=== PATIENT | male | born 1940 | race Caucasian/White ===

== ENCOUNTER → 2018-05-26 07:16 | Outpatient (CLI) | payer OTHER, SELFPAY ==
[2018-05-26 07:50] LABS: Add Manual Diff / Slide Review NO; Basophils Percent Auto 0.9 % (0-2); Hematocrit 46.6 % (41-53); Hemoglobin 15.4 g/dL (13.5-17.5); Lymphocytes Percent Auto 41.2 % (25-40); Mean Corpuscular HGB Conc 33.1 % (30-36); Mean Corpuscular Hemoglobin 30.2 PG (26-34); Mean Corpuscular Volume 91.2 fL (80-100); Monocytes Percent Auto 9.7 % (3-14); Neutrophils Absolute Auto 2000 /uL (3000-5900); Neutrophils Percent Auto 42.2 % (50-75); Platelet Count 167 X10^3/uL (150-400); Red Cell Distribution Width 13.9 % (11.6-14.8); White Blood Cell Count 4.8 X10^3/uL (4.5-11.0)
[2018-05-26 08:04] LABS: Alanine Aminotransferase 29 IU/L (21-72); Albumin 4.4 g/dL (3.5-5.0); Albumin Globulin Ratio 1.5 (1.0-2.8); Alkaline Phosphatase 39 U/L (38-126); Aspartate Aminotransferase 25 IU/L (17-59); Bilirubin Total 1.2 mg/dL (0.2-1.3); Blood Urea Nitrogen 23 mg/dL (9-20); Calcium 9.1 mg/dL (8.4-10.2); Carbon Dioxide 26 mmol/L (22-32); Chloride 105 mmol/L (98-107); Cholesterol 146 mg/dL (140-199); Estimated Glomerular Filt Rate > 60.0 mL/min (>60); Globulin 2.9 g/dL (1.7-4.1); Glucose 99 mg/dL (80-110); HDL Cholesterol 67 mg/dL (40-60); HEMOLYSIS < 15 (0-50); LDL Cholesterol Calculated 65 mg/dL (<100); Potassium 4.1 mmol/L (3.4-5.1); Sodium 142 mmol/L (137-145); Total Protein 7.3 g/dL (6.3-8.2); Triglycerides 70 mg/dL (35-150)
[2018-05-26 08:29] LABS: Thyroid Stimulating Hormone 3.61 uIU/mL (0.47-4.68)
[2018-05-26 08:30] LABS: Prostate Specific Antigen Scrn 0.971 ng/mL (0.1-4.0)
== END ==
PROVIDERS: PCP Family Medicine; Visit Provider Family Medicine
DX: E78.5 Hyperlipidemia, unspecified (principal); N13.8 Other obstructive and reflux uropathy; N40.1 Benign prostatic hyperplasia with lower urinary tract symptoms; Z12.5 Encounter for screening for malignant neoplasm of prostate; Z13.0 Encounter for screening for diseases of the blood and blood-forming organs and certain disorders involving the immune mechanism; Z13.29 Encounter for screening for other suspected endocrine disorder
CPT/HCPCS: 36415; 80053; 80061; 84443; 85025; G0103

== ENCOUNTER → 2018-11-06 09:57 | Outpatient (CLI) | payer OTHER, SELFPAY ==
[2018-11-10 14:33] LABS: Rubeola Measles IgG > 300.00 AU/mL (< 25.00)
== END ==
PROVIDERS: PCP Family Medicine; Visit Provider Family Medicine
DX: Z86.2 Personal history of diseases of the blood and blood-forming organs and certain disorders involving the immune mechanism (principal)
CPT/HCPCS: 36415; 86765

== ENCOUNTER → 2019-04-16 07:42 | Outpatient (CLI) | payer OTHER, SELFPAY ==
[2019-04-16 08:11] LABS: Add Manual Diff / Slide Review NO; Basophils Absolute Auto 100 /uL (0-100); Basophils Percent Auto 1.1 % (0-2); Eosinophils Absolute Auto 300 /uL (0-450); Eosinophils Percent Auto 7.2 % (2-4); Hematocrit 45.9 % (41-53); Hemoglobin 15.5 g/dL (13.5-17.5); Lymphocytes Absolute Auto 1700 /uL (1100-4500); Lymphocytes Percent Auto 35.7 % (25-40); Mean Corpuscular HGB Conc 33.8 % (30-36); Mean Corpuscular Volume 91.7 fL (80-100); Monocytes Absolute Auto 500 /uL (0-900); Monocytes Percent Auto 11.1 % (3-14); Neutrophils Absolute Auto 2100 /uL (1500-7000); Neutrophils Percent Auto 44.9 % (50-75); Platelet Count 188 X10^3/uL (150-400); Red Blood Cell Count 5.01 X10^6/uL (4.5-5.9); White Blood Cell Count 4.6 X10^3/uL (4.5-11.0)
[2019-04-16 08:26] LABS: Alanine Aminotransferase 22 IU/L (21-72); Albumin 4.6 g/dL (3.5-5.0); Albumin Globulin Ratio 1.4 (1.0-2.8); Alkaline Phosphatase 44 U/L (38-126); Aspartate Aminotransferase 28 IU/L (17-59); BUN Creatinine Ratio 19.1 (6-22); Bilirubin Total 1.7 mg/dL (0.2-1.3); Blood Urea Nitrogen 21 mg/dL (9-20); Carbon Dioxide 29 mmol/L (22-32); Chloride 103 mmol/L (98-107); Cholesterol 154 mg/dL (140-199); Estimated Glomerular Filt Rate > 60.0 mL/min (>60); Globulin 3.3 g/dL (1.7-4.1); Glucose 97 mg/dL (80-110); HDL Cholesterol 73 mg/dL (40-60); HEMOLYSIS < 15 (0-50); LDL Cholesterol Calculated 71 mg/dL (<100); Potassium 4.2 mmol/L (3.4-5.1); Sodium 139 mmol/L (137-145); Total Protein 7.9 g/dL (6.3-8.2); Triglycerides 52 mg/dL (35-150)
[2019-04-16 08:51] LABS: Prostate Specific Antigen Scrn 1.01 ng/mL (0.1-4.0)
== END ==
PROVIDERS: PCP Family Medicine; Visit Provider Family Medicine
DX: Z00.00 Encounter for general adult medical examination without abnormal findings (principal); L57.0 Actinic keratosis; N13.8 Other obstructive and reflux uropathy; N40.1 Benign prostatic hyperplasia with lower urinary tract symptoms; Z12.5 Encounter for screening for malignant neoplasm of prostate
CPT/HCPCS: 36415; 80053; 80061; 85025; G0103

== ENCOUNTER → 2020-06-13 07:01 | Outpatient (CLI) | payer OTHER, SELFPAY ==
[2020-06-13 07:49] LABS: Add Manual Diff / Slide Review NO; Basophils Absolute Auto 0 /uL (0-100); Eosinophils Absolute Auto 300 /uL (0-450); Hematocrit 44.7 % (41-53); Hemoglobin 14.9 g/dL (13.5-17.5); Lymphocytes Absolute Auto 2000 /uL (1100-4500); Mean Corpuscular HGB Conc 33.4 % (30-36); Mean Corpuscular Hemoglobin 30.7 PG (26-34); Monocytes Absolute Auto 600 /uL (0-900); Monocytes Percent Auto 11.5 % (3-14); Neutrophils Absolute Auto 1900 /uL (1500-7000); Neutrophils Percent Auto 39.5 % (50-75); Platelet Count 158 X10^3/uL (150-400); Red Blood Cell Count 4.86 X10^6/uL (4.5-5.9); Red Cell Distribution Width 13.8 % (11.6-14.8); White Blood Cell Count 4.9 X10^3/uL (4.5-11.0)
[2020-06-13 08:08] LABS: Alanine Aminotransferase 18 IU/L (<50); Albumin 4.1 g/dL (3.5-5.0); Albumin Globulin Ratio 1.4 (1.0-2.8); Alkaline Phosphatase 42 U/L (38-126); Aspartate Aminotransferase 26 IU/L (17-59); BUN Creatinine Ratio 24.7 (6-22); Bilirubin Total 1.6 mg/dL (0.2-1.3); Blood Urea Nitrogen 24 mg/dL (9-20); Calcium 9.6 mg/dL (8.4-10.2); Carbon Dioxide 33 mmol/L (22-32); Chloride 103 mmol/L (98-107); Cholesterol 141 mg/dL (140-199); Estimated Glomerular Filt Rate > 60.0 mL/min (>60); Glucose 93 mg/dL (80-110); HDL Cholesterol 78 mg/dL (40-60); HEMOLYSIS < 15 (0-50); LDL Cholesterol Calculated 49 mg/dL (<100); Potassium 4.4 mmol/L (3.4-5.1); Sodium 137 mmol/L (137-145); Total Protein 7.1 g/dL (6.3-8.2); Triglycerides 68 mg/dL (35-150)
[2020-06-13 08:37] LABS: Prostate Specific Antigen Scrn 1.03 ng/mL (0.1-4.0)
== END ==
PROVIDERS: PCP Family Medicine; Referring Provider Family Medicine; Visit Provider Family Medicine
DX: N13.8 Other obstructive and reflux uropathy (principal); Z12.5 Encounter for screening for malignant neoplasm of prostate; N40.1 Benign prostatic hyperplasia with lower urinary tract symptoms
CPT/HCPCS: 36415; 80053; 80061; 85025; G0103

== ENCOUNTER → 2021-06-14 07:06 | Outpatient (CLI) | payer OTHER, SELFPAY ==
[2021-06-14 08:18] LABS: Add Manual Diff / Slide Review NO; Basophils Absolute Auto 0 /uL (0-100); Basophils Percent Auto 0.8 % (0-2); Eosinophils Absolute Auto 200 /uL (0-450); Eosinophils Percent Auto 4.6 % (2-4); Hematocrit 42.8 % (41-53); Hemoglobin 14.5 g/dL (13.5-17.5); Lymphocytes Absolute Auto 2000 /uL (1100-4500); Lymphocytes Percent Auto 42.3 % (25-40); Mean Corpuscular HGB Conc 33.9 % (30-36); Mean Corpuscular Hemoglobin 30.8 PG (26-34); Mean Corpuscular Volume 90.8 fL (80-100); Monocytes Absolute Auto 500 /uL (0-900); Monocytes Percent Auto 11.4 % (3-14); Neutrophils Absolute Auto 1900 /uL (1500-7000); Neutrophils Percent Auto 40.9 % (50-75); Platelet Count 157 X10^3/uL (150-400); Red Blood Cell Count 4.72 X10^6/uL (4.5-5.9); Red Cell Distribution Width 13.8 % (11.6-14.8); White Blood Cell Count 4.7 X10^3/uL (4.5-11.0)
[2021-06-14 08:46] LABS: Alanine Aminotransferase 19 IU/L (<50); Albumin 4.2 g/dL (3.5-5.0); Albumin Globulin Ratio 1.5 (1.0-2.8); Alkaline Phosphatase 42 U/L (38-126); Aspartate Aminotransferase 26 IU/L (17-59); BUN Creatinine Ratio 18.3 (6-22); Bilirubin Total 1.3 mg/dL (0.2-1.3); Blood Urea Nitrogen 21 mg/dL (9-20); Calcium 9.6 mg/dL (8.4-10.2); Carbon Dioxide 31 mmol/L (22-32); Chloride 106 mmol/L (98-107); Cholesterol 147 mg/dL (140-199); Estimated Glomerular Filt Rate > 60.0 mL/min (>60); Globulin 2.8 g/dL (1.7-4.1); Glucose 94 mg/dL (80-110); HDL Cholesterol 87 mg/dL (40-60); HEMOLYSIS < 15 (0-50); LDL Cholesterol Calculated 46 mg/dL (<100); Potassium 4.1 mmol/L (3.4-5.1); Sodium 139 mmol/L (137-145); Triglycerides 72 mg/dL (35-150)
== END ==
PROVIDERS: PCP Family Medicine; Referring Provider Family Medicine; Visit Provider Family Medicine
DX: E78.5 Hyperlipidemia, unspecified (principal); Z12.5 Encounter for screening for malignant neoplasm of prostate; N40.1 Benign prostatic hyperplasia with lower urinary tract symptoms; N13.8 Other obstructive and reflux uropathy; L57.0 Actinic keratosis
CPT/HCPCS: 36415; 80053; 80061; 85025; G0103

== ENCOUNTER 2021-10-12 12:28 | Emergency (ER) | payer OTHER, SELFPAY ==
[2021-10-12 12:45] VITALS: BP 119/59; PULSE 82; RESP 18; TEMP 36.6; O2SAT 96; BMI 30.4
--- NOTE | 2021-10-12 14:28 | ED_ITS ---
HPI - Wound/Laceration <JORGE L Torres - Last Filed: 10/12/21 14:44> General Chief Complaint: Wound/Laceration Stated Complaint: Lip Laceration Time Seen by Provider: 10/12/21 13:52 Source: patient Mode of arrival: Ambulatory History of Present Illness HPI narrative: This is an 81-year-old male who presents to the emergency department after tripping on the sidewalk, and falling down to the ground he states he caught himself mostly but hit his face on the ground causing his front teeth to cut the inside tubercle of his top lip. On any blood thinners, denies any headache, neck pain, vision changes, nausea, vomiting, LOC, headache, jaw pain, face tenderness. He states he only hurt his top lip, does not go through the vermilion border, small laceration on the inner aspect his lip, no other oral injury. No shortness of breath, chest pain, speech changes, dizziness, photophobia. Patient states his tetanus is up-to-date, denies any face pain elsewhere. Patient endorses he also injured his right knee but denies any range of motion deficit, states it is tender where the abrasion is but he does not endorse any bony pain. He is able to fully flex and extend his right knee without difficulty. He has not taken any medication prior to arrival. He is ambulatory. Related Data Home Medications Medication Instructions Recorded Confirmed ibuprofen 200 mg capsule 200 mg PO PRN #0 11/19/11 06/15/21 [MULTI VITAMIN ] #0 04/12/13 06/15/21 Previous Rx's Medication Instructions Recorded fluticasone propionate 50 0 INTRANASAL QDAY #1 bot 02/27/16 mcg/actuation nasal spray,suspension (Flonase Allergy Relief) tamsulosin 0.4 mg capsule (Flomax) 0.4 mg PO BID #180 cap 05/08/21 amoxicillin 875 mg-potassium 1 tab PO BID #20 tab 06/15/21 clavulanate 125 mg tablet (Augmentin) Allergies Allergy/AdvReac Type Severity Reaction Status Date / Time No Known Drug Allergies Allergy Unverified 09/18/20 12:59 Review of Systems <JORGE L Torres - Last Filed: 10/12/21 14:44> Review of Systems Narrative: General: denies fever, chills, malaise, sweats, fatigue Head/Neck: denies headache, neck pain, dizziness Eyes: denies visual changes, eye pain Cardio: denies chest pain, palpitations, edema Respiratory: denies dyspnea, cough, orthopnea GI: denies abdominal pain, nausea, vomiting, or diarrhea : denies dysuria, hematuria, urinary retention, frequency or incontinence MSK: Endorses right superficial knee pain, no pain with knee movement, denies any muscle weakness or sensation changes, Skin: denies rash, itching, endorses abrasions to the tip of his nose and top lip with a small laceration on the inner aspect of his top lip. No bleeding at this time. Neuro: denies numbness, tingling Patient History <JORGE L Torres - Last Filed: 10/12/21 14:44> Medical History Chicken pox (1948) Colon polyps (2012) Measles (1946) Mumps (1949) Surgical History Anesthesia History of hip replacement (2011) History of hip replacement (2013) Family History Grandfather Diabetes mellitus Mother Cancer Liver cancer Father Cancer Grandmother No problems noted. Grandfather No problems noted. Grandmother No problems noted. Social History Smoking Status: Former smoker Smoking Status: Former smoker alcohol intake frequency: 0-2 drinks per day Substance Use Type: does not use Exam <JORGE L Torres - Last Filed: 10/12/21 14:44> Narrative Exam Narrative: Independently reviewed vitals signs and nursing notes. General: cooperative, comfortable, in no acute distress, well developed and well groomed Head: symmetrical facial expressions, abrasion to tip of nose, no tenderness to nasal bone facial bones, forehead, TMJ bilaterally or jaw pain to palpation. Full range of motion intact with his jaw, no intraoral injury other than his top lip. Neck: supple, atraumatic, without lymphadenopathy, nontender C-spine with palpation Eyes: pupils equal round and reactive, EOMI, conjunctiva normal, no nystagmus Nose: nares patent, no rhinorrhea Mouth/Throat: uvula midline, moist mucus membranes, small 2 mm x 2 mm laceration to the inner tubercle of his top lip. Bleeding has stopped, abrasion is present with contusion to and mild edema to his top lip. No other intraoral injury. Cardiovascular: regular rate and rhythm, no peripheral edema, warm extremities Respiratory: normal effort, able to speak in complete sentences, no audible wheezing, stridor, or rales. No retractions or tachypnea. GI: abdomen soft, nontender to palpation, nondistended, no masses, no exquisite tenderness with exam, without guarding or rebound. MSK: moves all extremities, ambulatory w/steady gait, neurovascularly intact, no weakness Skin: brisk capillary refill, no rash, no erythema Neuro: normal speech and cognition, A&O x3, normal tone Psych: mental status is grossly normal, congruent mood, normal affect, pleasant and cooperative Initial Vital Signs Initial Vital Signs: Vital Signs Temperature 97.8 F 10/12/21 12:45 Pulse Rate 82 10/12/21 12:45 Respiratory Rate 18 10/12/21 12:45 Blood Pressure 119/59 L 10/12/21 12:45 Pulse Oximetry 96 10/12/21 12:45 <Mercy Vega MD - Last Filed: 10/13/21 09:46> Initial Vital Signs Initial Vital Signs: Vital Signs Temperature 97.8 F 10/12/21 12:45 Pulse Rate 82 10/12/21 12:45 Respiratory Rate 18 10/12/21 12:45 Blood Pressure 119/59 L 10/12/21 12:45 Pulse Oximetry 96 10/12/21 12:45 Scores <JORGE L Torres - Last Filed: 10/12/21 14:44> [place] Head Rule Age <16 years old: No Patient on blood thinners: No Seizure after injury: No Exclusion: Patient NOT Excluded, Proceed to next steps GCS < 15 at 2 hr post trauma: No Suspected open or depressed skull fracture: No Any sign of basilar skull fracture (hemotympanum, raccoon eyes, Flores's sign, CSF sarita-/rhinorrhea): No Two or more episodes of vomiting: No Age greater or equal to 65 years: Yes Retrograde amnesia to the event greater or equal to 30 min: No Dangerous Mechanism (pedestrian vs. mv, occupant ejected from mv, fall from >3 ft or > 5 stairs): No Recommendation: Consider CT. The [place] Head CT Rule cannot rule out need for Imaging. <Mercy Vega MD - Last Filed: 10/13/21 09:46> [place] CT Head Rule Exclusion: Patient NOT Excluded, Proceed to next steps Recommendation: Consider CT. The [place] Head CT Rule cannot rule out need for Imaging. Course <JORGE L Torres - Last Filed: 10/12/21 14:44> Orders Ordered: Discontinued Medications Acetaminophen (Acetaminophen 325 Mg Tablet) 975 mg PO NOW ONE Stop: 10/12/21 14:28 Last Admin: 10/12/21 14:33 Dose: 975 mg Documented by: TAYLA Bacitracin (Bacitracin Oint 0.9 Gm Pckt) 1 applic TOP NOW ONE Stop: 10/12/21 14:28 Last Admin: 10/12/21 14:33 Dose: 1 applic Documented by: TAYLA Vital Signs Vital signs: Vital Signs - 8 hr 10/12/21 12:45 Temperature 97.8 F Pulse Rate 82 Respiratory Rate 18 Blood Pressure 119/59 L Pulse Oximetry 96 <Mercy Vega MD - Last Filed: 10/13/21 09:46> Orders Ordered: Discontinued Medications Acetaminophen (Acetaminophen 325 Mg Tablet) 975 mg PO NOW ONE Stop: 10/12/21 14:28 Last Admin: 10/12/21 14:33 Dose: 975 mg Documented by: TAYLA Bacitracin (Bacitracin Oint 0.9 Gm Pckt) 1 applic TOP NOW ONE Stop: 10/12/21 14:28 Last Admin: 10/12/21 14:33 Dose: 1 applic Documented by: TAYLA Vital Signs Vital signs: Vital Signs - 8 hr 10/12/21 12:45 Temperature 97.8 F Pulse Rate 82 Respiratory Rate 18 Blood Pressure 119/59 L Pulse Oximetry 96 MDM - Wound/Laceration <JORGE L Torres - Last Filed: 10/12/21 14:44> MDM Narrative Medical decision making narrative: This Is a pleasant 81-year-old male who presents to the emergency department after tripping on the ground and falling forward, mostly catching himself but striking his top lip and tip of nose on the ground. Patient is to front top teeth she any point and cut the inner aspect of the top lip at the tubercle proximally 2 mm x 2 mm. [place] decision making between patient and myself to a void so in this up, reason being is it would likely catch on his teeth that her shaped in this way, and create a larger injury. This is a top lip contusion with an abrasion on the outside, superficial bleeding is present, no full- thickness wound to sew back together. Patient does not have a headache, neck pain, altered mental status, speech changes, jaw pain, vision changes, is not on anticoagulants, did not have any nausea vomiting, did not lose consciousness, does not have any signs and symptoms of a concussion or injury. Patient was given strict return precautions for any of the symptoms above to return to the emergency department for another evaluation. Bacitracin was applied to the abrasions on his right knee and external lip, covered with Band-Aids after cleansing with normal saline. Patient tolerated this well, he was given Tylenol in the emergency department. States understanding to follow-up with his primary care provider as planned or return to the emergency department for any worsening. Patient is appropriate and amenable to discharge home. Vital signs are stable on repeat examination is unremarkable. Patient has been informed of results. Patient has been given strict return to ER precautions for any new or worsening symptoms. Patient understands to follow up closely with outpatient providers as instructed. Patient understands plan and agrees to discharge home. All questions and concerns answered at this time. Discharge Plan Departure Patient Disposition: Home Clinical Impression: Fall Qualifiers: Encounter type: initial encounter Qualified Code(s): W19.XXXA - Unspecified fall, initial encounter Laceration of lip Qualifiers: Encounter type: initial encounter Qualified Code(s): S01.511A - Laceration without foreign body of lip, initial encounter Instructions: DI for Minor Laceration Activity Restrictions/Additional Instructions: *You have been diagnosed with a small laceration to the tubercle of your top lip. This laceration is approximately 2 mm deep and 2 mm long. It should heal within the next 1-2 days without much trouble. Please keep your top lip covered with a Band-Aid to help protect it from the sun and from foreign debris getting to your wound. Please try the Vaseline idea and report back if that helps. If you notice any swelling or redness, warmth, signs of infection of her top lip, please start applying antibiotic ointment to all of the open areas, and see your primary care provider or return for possible infection. The likelihood of this getting infected is low, but practice good oral hygiene to help prevent this from happening. Please do not apply any alcohol, hydrogen peroxide, or anything to the wound to allow to heal as rapidly as possible. Thank you for trusting us with your care, please return to the emergency department immediately if you start vomiting, develop a bad headache, mental status changes, speech changes, weakness, or any concerning symptoms. I hope it feels better soon. *What to do: *Please continue to take your regular medications as directed. [ ] New medication prescriptions sent to your pharmacy: [ ] [ ] New medication written as a paper prescription [ x] No new medications given *Please follow up with your primary care provider in 2-3 days, call for an appointment. Let them know you were seen in the Emergency Department and that we asked that you be seen for follow-up. We will electronically transmit a record of today's note if your PCP is in our system *If you do not have a primary care provider please contact [phone] to establish care with one of the [facility] primary care providers. *Return to Emergency Department if you should have any new, worsening or c oncerning symptoms, such as [fever greater than 101F, chills, worsening pain, persistent vomiting or other bothersome symptoms] Prescriptions: No Action ibuprofen 200 MG capsule 200 mg PO PRN Qty: 0 0RF [MULTI VITAMIN ] Qty: 0 0RF fluticasone propionate [Flonase Allergy Relief] 9.9 ML spray,suspension 0 Intranasal QDAY Qty: 1 0RF tamsulosin [Flomax] 0.4 mg capsule 0.4 mg PO BID Qty: 180 3RF amoxicillin-pot clavulanate [Augmentin] 875-125 mg tablet 1 tab PO BID Qty: 20 0RF Referrals: Win Duggan MD [Primary Care Provider] - <Mercy Vega MD - Last Filed: 10/13/21 09:46> Cosign ED Attending Cosignature Attestation: I was immediately available in the department for consultation throughout this patient's visit. I agree with documentation as above. Mercy Vega MD
[2021-10-12] MEDS: ACETAMINOPHEN 325 MG TABLET 975 MG PO (14:33)
[2021-10-12] MEDS: BACITRACIN OINT 0.9 GM PCKT 1 APPLIC TOP (14:33)
[2021-10-12 14:46] VITALS: BP 120/71; PULSE 71; RESP 16; O2SAT 99
== END 2021-10-12 14:47 | disposition home or self-care (01) ==
PROVIDERS: Emergency Provider Nurse Practitioner Critical Care Medicine; PCP Family Medicine
DX: S01.511A Laceration without foreign body of lip, initial encounter (principal); W01.198A Fall on same level from slipping, tripping and stumbling with subsequent striking against other object, initial encounter
CPT/HCPCS: 99283

== ENCOUNTER → 2021-12-17 07:26 | Outpatient (CLI) | payer OTHER, SELFPAY ==
[2021-12-17 08:24] LABS: Alanine Aminotransferase 19 IU/L (<50); Albumin 4.1 g/dL (3.5-5.0); Albumin Globulin Ratio 1.5 (1.0-2.8); Alkaline Phosphatase 38 U/L (38-126); Aspartate Aminotransferase 28 IU/L (17-59); BUN Creatinine Ratio 21.1 (6-22); Bilirubin Total 1.7 mg/dL (0.2-1.3); Blood Urea Nitrogen 24 mg/dL (9-20); Carbon Dioxide 29 mmol/L (22-32); Chloride 104 mmol/L (98-107); Estimated Glomerular Filt Rate > 60 mL/min (>60); Globulin 2.8 g/dL (1.7-4.1); Glucose 99 mg/dL (80-110); HEMOLYSIS < 15 (0-50); Potassium 4.1 mmol/L (3.4-5.1); Sodium 138 mmol/L (137-145); Total Protein 6.9 g/dL (6.3-8.2)
== END ==
PROVIDERS: PCP Family Medicine; Referring Provider Family Medicine; Visit Provider Family Medicine
DX: E78.5 Hyperlipidemia, unspecified (principal); L57.0 Actinic keratosis; N13.8 Other obstructive and reflux uropathy; N40.1 Benign prostatic hyperplasia with lower urinary tract symptoms
CPT/HCPCS: 36415; 80053

== ENCOUNTER → 2022-01-21 10:50 | Outpatient (CLI) | payer OTHER, SELFPAY ==
--- NOTE | 2022-01-21 10:52 | DI.RAD.S_ITS ---
PROCEDURE: XR SHOULDER RT MIN 2V INDICATIONS: Right shoulder pain TECHNIQUE: 3 views of the shoulder were acquired. COMPARISON: [facility], , SHOULDER MINIMUM 2VIEW RIGHT, 06/11/2017, 8:30. FINDINGS: Bones: No fractures or dislocations. No suspicious bony lesions. Visualized ribs appear intact. Mild AC joint hypertrophy redemonstrated. Soft tissues: Redemonstrated small corticated calcifications adjacent to the acromioclavicular joint, likely degenerative or potentially remote posttraumatic. IMPRESSION: 1. No acute osseous abnormality. 2. Degenerative changes of the acromioclavicular joint. Dictated by: Jovany Mack M.D. on 01/21/2022 at 14:00 Approved by: Jovany Mack M.D. on 01/21/2022 at 14:06
== END ==
PROVIDERS: PCP Family Medicine; Referring Provider Family Medicine; Visit Provider Family Medicine
DX: M25.511 Pain in right shoulder (principal)
CPT/HCPCS: 73030

== ENCOUNTER → 2022-03-18 07:38 | Outpatient (CLI) | payer OTHER, SELFPAY ==
--- NOTE | 2022-03-18 07:38 | DI.MRI.S_ITS ---
PROCEDURE: MR SHOULDER RT WO CON INDICATIONS: RIGHT shoulder pain TECHNIQUE: Noncontrast oblique coronal T2 fast spin echo with fat saturation, oblique sagittal T1 spin echo and T2 fast spin echo with fat saturation, axial T1 spin echo and T2 fast spin echo with fat saturation through the shoulder. COMPARISON: [facility], CR, XR SHOULDER RT MIN 2V, 01/21/2022, 11:39. [facility], , SHOULDER MINIMUM 2VIEW RIGHT, 06/11/2017, 8:30. FINDINGS: Image quality: Excellent. Rotator cuff: There is moderate supraspinatus, infraspinatus and subscapularis tendinosis. Superimposed partial-thickness tear is present involving the bursal and articular surface of the supraspinatus and subscapularis tendons. Sagittal images demonstrate no rotator cuff muscle atrophy. Bones and bursae: No bone marrow contusions or fractures. 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 The acromion demonstrates conventional anatomy, without an os acromiale. There is subacromial-subdeltoid bursal fluid consistent with bursitis. Capsule and soft tissues: There is diffuse degenerative labral fraying. The long head of the biceps tendon demonstrates normal location and morphology. The rotator interval appears normal, without fibrosis. The coracohumeral ligament is normal in thickness. IMPRESSION: 1. Moderate supraspinatus, infraspinatus and subscapularis tendinosis. Partial thickness tear is present involving both articular and bursal surfaces of the supraspinatus and subscapularis tendons. No rotator cuff tendon retraction or muscle atrophy. 2. 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 3. Subacromial-subdeltoid bursitis. 4. Degenerative labral fraying. Dictated by: Shahana Reyes M.D. on 03/18/2022 at 9:06 Approved by: Shahana Reyes M.D. on 03/18/2022 at 9:11
== END ==
PROVIDERS: PCP Family Medicine; Referring Provider Family Medicine; Visit Provider Family Medicine
DX: M25.511 Pain in right shoulder (principal); M75.111 Incomplete rotator cuff tear or rupture of right shoulder, not specified as traumatic; M75.51 Bursitis of right shoulder
CPT/HCPCS: 73221

== ENCOUNTER → 2022-10-09 07:34 | Outpatient (CLI) | payer OTHER, SELFPAY ==
[2022-10-09 08:53] LABS: Alanine Aminotransferase 22 IU/L (<50); Albumin 3.9 g/dL (3.5-5.0); Albumin Globulin Ratio 1.3 (1.0-2.8); Alkaline Phosphatase 40 U/L (38-126); Aspartate Aminotransferase 27 IU/L (17-59); BUN Creatinine Ratio 25.8 (6-22); Blood Urea Nitrogen 24 mg/dL (9-20); Carbon Dioxide 26 mmol/L (22-32); Chloride 105 mmol/L (98-107); Cholesterol 157 mg/dL (140-199); Estimated Glomerular Filt Rate > 60 mL/min (>60); Globulin 2.9 g/dL (1.7-4.1); Glucose 93 mg/dL (80-110); HDL Cholesterol 86 mg/dL (40-60); HEMOLYSIS < 15 (0-50); LDL Cholesterol Calculated 53 mg/dL (<100); Potassium 3.9 mmol/L (3.4-5.1); Sodium 136 mmol/L (137-145); Total Protein 6.8 g/dL (6.3-8.2); Triglycerides 88 mg/dL (35-150)
[2022-10-09 09:25] LABS: Prostate Specific Antigen Scrn 0.998 ng/mL (0.1-4.0)
[2022-10-09 09:44] LABS: Add Manual Diff / Slide Review NO; Basophils Absolute Auto 100 /uL (0-100); Basophils Percent Auto 1.1 % (0-2); Eosinophils Absolute Auto 200 /uL (0-450); Eosinophils Percent Auto 4.7 % (2-4); Hematocrit 43.6 % (41-53); Hemoglobin 14.9 g/dL (13.5-17.5); Lymphocytes Absolute Auto 1800 /uL (1100-4500); Lymphocytes Percent Auto 37.9 % (25-40); Mean Corpuscular HGB Conc 34.2 % (30-36); Mean Corpuscular Hemoglobin 31.2 PG (26-34); Mean Corpuscular Volume 91.3 fL (80-100); Monocytes Absolute Auto 500 /uL (0-900); Monocytes Percent Auto 10.5 % (3-14); Neutrophils Absolute Auto 2200 /uL (1500-7000); Neutrophils Percent Auto 45.8 % (50-75); Platelet Count 169 X10^3/uL (150-400); Red Blood Cell Count 4.78 X10^6/uL (4.5-5.9); Red Cell Distribution Width 14.1 % (11.6-14.8); White Blood Cell Count 4.7 X10^3/uL (4.5-11.0)
== END ==
PROVIDERS: PCP Family Medicine; Referring Provider Family Medicine; Visit Provider Family Medicine
DX: E78.5 Hyperlipidemia, unspecified (principal); Z12.5 Encounter for screening for malignant neoplasm of prostate; E80.6 Other disorders of bilirubin metabolism
CPT/HCPCS: 36415; 80053; 80061; 85025; G0103

== ENCOUNTER 2022-10-29 06:30 | Day surgery (SDC) | payer OTHER, SELFPAY ==
--- NOTE | 2022-10-29 | PATH_ITS ---
[facility] Accession Number: [id number] No. of containers..01 Tissue . 01 Material submitted: . colon - DESCENDING COLON POLYP . 01 Diagnosis: Descending Colon, Polyp, Biopsy: Tubular adenoma. [facility] 11/01/2022 1142 Local . 01 Electronically signed: . Noemy Slade MD, Pathologist NPI- [id number] . 01 Gross description: . DESCENDING COLON POLYP: Received in formalin are 3 fragment(s) of saldana, soft tissue measuring 0.1 x 0.1 x 0.1 cm to 0.3 x 0.3 x 0.2 cm submitted entirely in 1 cassette(s) /ABHIJEET 10/30/20222025 Local . 01 Pathologist provided ICD-10: D12.4 . 01 CPT . 228657 Specimen Comment: A courtesy copy of this report has been sent to [phone] Performed at: 01 [facility] [address] [place] [address], [place], [place] [id number] MD Braeden Bronson MD Phone: [phone]
[2022-10-29] MEDS: LACTATED RINGERS 1,000 ML 200 ML IV (06:50)
[2022-10-29 06:57] VITALS: BP 135/81; PULSE 96; RESP 96; TEMP 36.3; O2SAT 20; BMI 29.6
--- NOTE | 2022-10-29 07:44 | P.HP_ITS ---
History of Present Illness History of Present Illness Date Patient Seen: 10/29/22 Time Patient Seen: 07:45 Chief complaint: Colonoscopy Narrative: The patient presents for colorectal screening. Personal history of colonic polyps. Last colonoscopy 5 years ago normal. No personal or family history of colon cancer. On further history denies any recent gastrointestinal symptoms. No nausea, vomiting, abdominal pain, loss of appetite, unexplained weight loss, change in bowel habits, or blood per rectum. [facility] Medical History (Updated 10/29/22 @ 07:45 by Azael Isidro MD) Chicken pox (194) Colon polyps (2012) Measles (194) Mumps (194) Surgical History Anesthesia History of hip replacement (2011) History of hip replacement (2013) Family History Grandfather Diabetes mellitus Mother Cancer Liver cancer Father Cancer Grandmother No problems noted. Grandfather No problems noted. Grandmother No problems noted. Social History household members: spouse Smoking Status: Former smoker Meds Home Medications and Allergies Home Medications Medication Instructions Recorded Confirmed Type ibuprofen 200 mg capsule 200 mg PO PRN ##0 11/19/11 10/29/22 History [MULTI VITAMIN ] ##0 04/12/13 03/12/22 History tamsulosin 0.4 mg capsule See Rx Instructions .Route 10/14/22 10/29/22 Rx .COMPLEX #180 caps fluticasone propionate 50 1 spray intranasal QDAY 10/29/22 10/29/22 History mcg/actuation nasal spray,suspension (Flonase Allergy Relief) Allergies Allergy/AdvReac Type Severity Reaction Status Date / Time No Known Drug Allergies Allergy Verified 10/29/22 06:50 Exam Vital Signs (past 8 hours): - 10/29/22 06:57 Temperature 97.3 F L Pulse Rate 96 H Respiratory Rate 96 H Blood Pressure 135/81 Pulse Oximetry 20 L Oxygen Delivery Method Room Air Oxygen Flow Rate 98 Oxygen Delivery Method Room Air Oxygen Flow Rate 98 Narrative Exam Narrative: General adult man alert oriented no acute distress Abdomen soft nontender nondistended Assessment & Plan Assessment and plan (1) Colon polyps: Status: Acute Assessment & Plan narrative: The patient requires colorectal screening and colonoscopy is recommended. Technical details were discussed. Risks, benefits, alternatives explained. Risks including but not limited to myocardial infarction, aspiration, bleeding, pain, missed lesion, incomplete examination, need for further radiographic studies, colonic perforation, and need for major abdominal surgery were discussed. All questions were answered to their satisfaction, and they are in agreement with this plan.
--- NOTE | 2022-10-29 07:46 | PM.OP.COLON ---
Operative Date/Time/Diagnoses Date of procedure: 10/29/22 Time of procedure: 08:11 Pre-op diagnosis: Personal history of colonic polyps Post-op diagnosis: other (Colonic polyp x1) Procedure & Clinicians Study performed: Colonoscopy and polypectomy Same procedure as scheduled: Yes Indications: Personal history of colonic polyps. Colorectal screening. Surgeon: Azael Isidro Procedure Notes Procedure in detail: The history and physical was performed/updated and the patient is ASA class is 2. The procedure was discussed in detail with the patient. Potential risks complications including infection, bleeding, missed diagnosis, perforation, need for surgery, and were explained. Their questions were answered and informed consent was obtained. Patient was brought to the procedure room and placed standard monitoring equipment. The patient's vital signs were monitored continuously throughout the entire procedure. Prior to starting time-out was performed. The patient was placed in the left lateral recumbent position. Procedural sedation was administered by anesthesia. Examination began with a thorough inspection of the perianal area there was no evidence of fissures, fistulae, external hemorrhoids or cutaneous malignancy. The colonoscopy scope was then placed into the anal canal and was advanced to the cecum, which was identified by the ileocecal valve, the appendiceal orifice and the confluence of the taenia. The scope was then slowly withdrawn examining colon thoroughly in all directions, irrigating it of any residual stool. Quality of the prep was fair. Within the descending colon at approximately 70 cm from the anal verge a 3 mm flat polyp was identified removed with biopsy forceps. The sigmoid colon was notable for diverticulosis and internal hemorrhoids were observed within the rectum. The patient tolerated the procedure well. They will be discharged once criteria are met. The withdrawl time was 8 minutes. Specimen(s): other (Descending colon polyp) Complications: none Impression: Colonic polyp x1 Post-procedure Recommendations: High fiber diet Plan for aftercare: Pathology to follow. Likely no further screening colonoscopy is necessary Disposition: same day surgery
[2022-10-29 08:06] VITALS: BP 96/62; PULSE 74; RESP 10; TEMP 36.6; O2SAT 93
[2022-10-29 08:12] VITALS: BP 85/56; PULSE 71; RESP 12; O2SAT 93
[2022-10-29 08:18] VITALS: BP 111/71; PULSE 79; RESP 14; O2SAT 95
[2022-10-29 08:21] VITALS: BP 113/78; PULSE 82; RESP 12; TEMP 36.2; O2SAT 96
== END 2022-10-29 08:36 | disposition home or self-care (01) ==
PROVIDERS: PCP Family Medicine; Referring Provider Surgery; Visit Provider Surgery
PROC: 0DJD8ZZ Inspection of Lower Intestinal Tract, Via Natural or Artificial Opening Endoscopic (ICD-10-PCS; CPT 45378; principal; 2022-10-29 07:45)
DX: D12.4 Benign neoplasm of descending colon (principal); K57.30 Diverticulosis of large intestine without perforation or abscess without bleeding; K64.8 Other hemorrhoids; Z12.11 Encounter for screening for malignant neoplasm of colon; Z86.010 Personal history of colon polyps
CPT/HCPCS: 45380; J2704; J3010

== ENCOUNTER → 2022-12-30 07:15 | Outpatient (CLI) | payer OTHER, SELFPAY ==
[2022-12-30 09:19] LABS: Bilirubin Direct 0.2 mg/dL (0.0-0.4); Bilirubin Total 1.5 mg/dL (0.2-1.3)
== END ==
PROVIDERS: PCP Family Medicine; Referring Provider Family Medicine; Visit Provider Family Medicine
DX: R17 Unspecified jaundice (principal)
CPT/HCPCS: 36415; 82247; 82248

== ENCOUNTER → 2023-09-27 08:08 | Outpatient (CLI) | payer OTHER, SELFPAY | PROVIDERS: PCP Family Medicine; Visit Provider Nurse Practitioner Family | DX: L72.3 Sebaceous cyst (principal) | CPT/HCPCS: 87070; 87077; 87186; 87205 ==

== ENCOUNTER → 2023-11-03 06:58 | Outpatient (CLI) | payer OTHER, SELFPAY ==
[2023-11-03 08:12] LABS: Add Manual Diff / Slide Review NO; Basophils Absolute Auto 0 /uL (0-100); Basophils Percent Auto 0.6 % (0-2); Eosinophils Absolute Auto 100 /uL (0-450); Eosinophils Percent Auto 1.5 % (2-4); Hematocrit 43.4 % (41-53); Hemoglobin 14.6 g/dL (13.5-17.5); Lymphocytes Absolute Auto 2100 /uL (1100-4500); Lymphocytes Percent Auto 35.3 % (25-40); Mean Corpuscular HGB Conc 33.6 % (30-36); Mean Corpuscular Hemoglobin 31.2 PG (26-34); Mean Corpuscular Volume 92.7 fL (80-100); Monocytes Absolute Auto 500 /uL (0-900); Neutrophils Absolute Auto 3200 /uL (1500-7000); Neutrophils Percent Auto 53.6 % (50-75); Platelet Count 171 X10^3/uL (150-400); Red Blood Cell Count 4.68 X10^6/uL (4.5-5.9); Red Cell Distribution Width 14.5 % (11.6-14.8)
[2023-11-03 08:48] LABS: Alanine Aminotransferase 20 IU/L (<50); Albumin 4.2 g/dL (3.5-5.0); Albumin Globulin Ratio 1.4 (1.0-2.8); Alkaline Phosphatase 40 U/L (38-126); Aspartate Aminotransferase 25 IU/L (17-59); BUN Creatinine Ratio 21.9 (6-22); Blood Urea Nitrogen 21 mg/dL (9-20); Calcium 9.5 mg/dL (8.4-10.2); Carbon Dioxide 30 mmol/L (22-32); Chloride 104 mmol/L (98-107); Cholesterol 145 mg/dL (140-199); Estimated Glomerular Filt Rate > 60 mL/min (>60); Globulin 2.9 g/dL (1.7-4.1); Glucose 86 mg/dL (80-110); HDL Cholesterol 98 mg/dL (40-60); HEMOLYSIS < 15 (0-50); LDL Cholesterol Calculated 39 mg/dL (<100); Potassium 4.1 mmol/L (3.4-5.1); Sodium 138 mmol/L (137-145); Total Protein 7.1 g/dL (6.3-8.2); Triglycerides 41 mg/dL (35-150)
[2023-11-03 09:12] LABS: Prostate Specific Antigen Scrn 0.962 ng/mL (0.1-4.0)
[2023-11-04 06:08] LABS: Apolipoprotein B 42 mg/dL (<90)
== END ==
LOC: LAB 06:59
PROVIDERS: PCP Family Medicine; Referring Provider Family Medicine; Visit Provider Family Medicine
DX: Z00.00 Encounter for general adult medical examination without abnormal findings (principal); E78.5 Hyperlipidemia, unspecified; Z12.5 Encounter for screening for malignant neoplasm of prostate; E80.6 Other disorders of bilirubin metabolism; R17 Unspecified jaundice
CPT/HCPCS: 36415; 80053; 80061; 82172; 82248; 85025; G0103

== ENCOUNTER → 2025-01-17 06:52 | Outpatient (CLI) | payer OTHER, SELFPAY ==
[2025-01-17 07:31] LABS: Add Manual Diff / Slide Review NO; Hematocrit 42.2 % (41-53); Hemoglobin 14.2 g/dL (13.5-17.5); Lymphocytes Absolute Auto 2000 /uL (1100-4500); Mean Corpuscular HGB Conc 33.6 % (30-36); Mean Corpuscular Hemoglobin 31.2 PG (26-34); Mean Corpuscular Volume 92.8 fL (80-100); Platelet Count 164 X10^3/uL (150-400)
[2025-01-17 07:56] LABS: Alanine Aminotransferase 19 IU/L (<50); Albumin 4.2 g/dL (3.5-5.0); Albumin Globulin Ratio 1.6 (1.0-2.8); Alkaline Phosphatase 39 U/L (38-126); Blood Urea Nitrogen 27 mg/dL (9-20); Calcium 9.6 mg/dL (8.4-10.2); Carbon Dioxide 27 mmol/L (22-32); Chloride 104 mmol/L (98-107); Cholesterol 149 mg/dL (140-199); Estimated Glomerular Filt Rate > 60 mL/min (>60); Globulin 2.7 g/dL (1.7-4.1); Glucose 97 mg/dL (70-99); HDL Cholesterol 72 mg/dL (40-60); HEMOLYSIS < 15 (0-50); Potassium 3.9 mmol/L (3.4-5.1); Sodium 137 mmol/L (137-145); Total Protein 6.9 g/dL (6.3-8.2); Triglycerides 100 mg/dL (35-150)
[2025-01-17 08:24] LABS: TSH w/ Reflex to FT4 3.83 uIU/mL (0.47-4.68)
== END ==
PROVIDERS: PCP Family Medicine; Referring Provider Family Medicine; Visit Provider Family Medicine
DX: Z00.00 Encounter for general adult medical examination without abnormal findings (principal); R17 Unspecified jaundice; N40.0 Benign prostatic hyperplasia without lower urinary tract symptoms; L57.0 Actinic keratosis
CPT/HCPCS: 36415; 80053; 80061; 84443; 85025

== ENCOUNTER → 2025-05-06 16:54 | Outpatient (CLI) | payer OTHER, SELFPAY ==
--- NOTE | 2025-05-06 16:55 | DI.RAD.S_ITS ---
PROCEDURE: XR SHOULDER LT MIN 2V
== END ==
PROVIDERS: PCP Family Medicine; Referring Provider Family Medicine; Visit Provider Family Medicine
DX: M25.512 Pain in left shoulder (principal)
CPT/HCPCS: 73030